=== PATIENT | male | born 1965 | race Caucasian/White ===

== ENCOUNTER → 2021-01-02 | Outpatient (CLI) | payer BC ==
[~2021-01-02] MED LIST: ADULT LOW DOSE81 MG PO; ALDACTONE 25MG25 MG PO; CARVEDILOL12.5 MG PO; COREG6.25 MG PO; CORLANOR5 MG/5 ML PO; ENTRESTO 24 MG1 EACH PO; KLOR-CON20 MEQ PO; LASIX80 MG PO; LIPITOR80 MG PO; TIROSINT50 MCG PO
[2021-01-02 09:51] LABS: BUN/CREATININE RATIO 14 (0-10)
== END ==
LOC: LAB 09:00
PROVIDERS: Emergency Medicine
DX: I50.22 Chronic systolic (congestive) heart failure (principal); I48.21 Permanent atrial fibrillation; E03.8 Other specified hypothyroidism; R53.83 Other fatigue
CPT/HCPCS: 36415; 80053; 84443